=== PATIENT | male | born 1970 | race African-American/Black ===

== ENCOUNTER 2017-09-23 00:25 | Inpatient (IN) | payer MEDICARE, MEDICAID ==
[2017-09-23 01:08] LABS: ABS Basophils 0.1 10^3/ul (0-0.2); ABS Eosinophils 0.2 10^3/ul (0-0.6); ABS Lymphocytes 1.3 10^3/ul (1.0-4.8); ABS Monocytes 0.8 10^3/ul (0-0.8); ABS Neutrophils 5.8 10^3/ul (1.5-7.7); ABS Nucleated RBC 0 10^3/ul; Eosinophil % 2.4 % (0-6); Hematocrit 42 % (42-52); Hemoglobin 14.1 g/dl (14.0-18.0); Lymphocyte % 15.6 % (25-47); Mean Corpuscular HGB Conc 34 g/dl (31-36); Mean Corpuscular Hemoglobin 33 pg (27-31); Mean Corpuscular Volume 98 fL (80-94); Mean Platelet Volume 9 um3 (7.4-10.4); Nucleated Red Blood Cells % 0; Platelet Count 178 10^3/ul (150-450); Red Blood Count 4.23 10^6/ul (4.0-5.4); Red Cell Distribution Width 14 % (10.5-15); White Blood Count 8.1 10^3/ul (3.5-10.8)
[2017-09-23 01:16] LABS: INR 0.97 (0.77-1.02)
[2017-09-23 01:26] LABS: EGFR Non-African American 5.6 (>60)
[2017-09-23] MEDS ORDERED: Morphine INJ* 4 MG/ML 1 ML CARPUJECT IV ONE (03:34)
[2017-09-23] MEDS ORDERED: Ondansetron INJ* 2 MG/ML VIAL IV ONE (03:35)
--- NOTE | 2017-09-23 04:06 | ED ---
Cielo Pleitez Jason, scribed for Andrea Ghotra MD on 09/23/17 at 0047 . HPI Chest Pain - HPI Summary HPI Summary: This patient is a 47 year old M BIBA to [facility] accompanied by female with a chief complaint of chest pain since 2329. The patient states at 1736 last night he began experiencing mid sternal Chest pain while feeling hot and lightheaded for 30 minutes. The condition spontaneously resolved, and at 2330 last night he awoke due to similar mid sternal chest pain. The patient was was administered aspirin by EMS [facility]. The patient rates the pain 0/10 in severity. Symptoms aggravated by nothing. Symptoms alleviated by aspirin. Patient denies SOB, and chest pain. - History of Current Complaint Chief Complaint: EDChestPainROMI Time Seen by Provider: 09/23/17 00:33 Hx Obtained From: Patient Onset/Duration: Started Hours Ago - since 2329, Resolved Time of Onset: 23:30 Timing: Constant Pain Intensity: 0 Pain Scale Used: 0-10 Numeric Chest Pain Location: Mid Sternal Aggravating Factor(s): Nothing Alleviating Factor(s): OTC Meds - aspirin Associated Signs and Symptoms: Positive: Chest Pain, Lightheadedness, Other: - Feeling hot - Allergy/Home Medications Allergies/Adverse Reactions: Allergies Allergy/AdvReac Type Severity Reaction Status Date / Time NSAIDS (Non-Steroidal Allergy Intermediate d/t renal Verified 09/23/17 01:08 Anti-Inflamma impairment Penicillins Allergy Mild GI Upset Verified 09/23/17 01:08 Home Medications: Home Medications Calcitriol 0.5 mcg PO DAILY 09/23/17 [History Confirmed 09/23/17] Ferric Citrate TAB(NF) 210 mg PO TID 09/23/17 [History Confirmed 09/23/17] Labetalol HCl 300 mg PO BID 09/23/17 [History Confirmed 09/23/17] Sevelamer TAB* [Renvela TAB*] 2,400 mg PO TID 09/23/17 [History Confirmed ] Vitamin E Mixed [E400 Mixed] 800 unit PO DAILY 09/23/17 [History Confirmed 09/23] levOCARNitine [Carnitor] 330 mg PO TID 09/23/17 [History Confirmed 09/23/17] PMH/Surg Hx/FS Hx/Imm Hx Previously Healthy: No Endocrine/Hematology History: Reports: Hx Anemia - ??? Denies: Hx Anticoagulant Therapy, Hx Diabetes, Hx Thyroid Disease, Other Endocrine/Hematological Disorders Cardiovascular History: Reports: Hx Angina, Hx Hypercholesterolemia, Hx Hypertension - ON MEDS 160/90 11/11, Hx Syncope - 01/2012 Denies: Hx Pacemaker/ICD, Other Cardiovascular Problems/Disorders Respiratory History: Denies: Hx Asthma, Hx Chronic Obstructive Pulmonary Disease (COPD), Other Respiratory Problems/Disorders GI History: Reports: Hx Irritable Bowel - CONSTIPATION- TAKING FIBER PILLS, Other GI Disorders - Constipation History: Reports: Hx Chronic Renal Failure, Hx Dialysis, Hx Renal Disease - dialysis 3 times a week, Other Problems/Disorders - ESRD Musculoskeletal History: Reports: Hx Arthritis - RIGHT ANKLE, Hx Back Problems, Other Musculoskeletal History Sensory History: Reports: Hx Contacts or Glasses - GLASSES, Hx Eye Injury, Hx Vision Problem, Other Sensory Impairments - S/P Artificial Eye D/T Injury Denies: Hx Hearing Aid Opthamlomology History: Reports: Hx Contacts or Glasses - GLASSES, Hx Eye Injury , Hx Vision Problem, Other Sensory Impairments - S/P Artificial Eye D/T Injury Neurological History: Reports: Hx Headaches - D/T elevated BP Denies: Hx Dementia, Hx Seizures, Other Neuro Impairments/Disorders Psychiatric History: Reports: Hx Anxiety - PRN MEDICATION Denies: Hx Substance Abuse, Other Psychiatric Issues/Disorders - Surgical History Surgery Procedure, Year, and Place: L Eye removal D/T Injury . [place] [facility] [place]OD[place] CATH INSERTION 2012 [facility] [place]. Hx Anesthesia Reactions: No - Immunization History Date of Tetanus Vaccine: UNK Date of Influenza Vaccine: None this season Infectious Disease History: No Infectious Disease History: Denies: Hx Hepatitis, Hx Human Immunodeficiency Virus (HIV), Traveled Outside the [place] in Last 30 Days - Family History Known Family History: Positive: Hypertension Negative: Blood Disorder - Social History Alcohol Use: None Substance Use Type: Reports: Marijuana Substance Use Comment - Amount & Last Used: EVERY DAY Hx Tobacco Use: Yes Smoking Status (MU): Former Smoker Type: Cigarettes Amount Used/How Often: 1 PPD Length of Time of Smoking/Using Tobacco: 32 Have You Smoked in the Last Year: No Review of Systems Positive: Other - "feeling hot" Positive: Chest Pain - midsternal Positive: Shortness Of Breath Neurological: Other - lightheaded All Other Systems Reviewed And Are Negative: Yes Physical Exam - Summary Physical Exam Summary: VITAL SIGNS: Reviewed. GENERAL: ~Patient is a well-developed and nourished male who is lying comfortable in the stretcher. Patient is not in any acute respiratory distress. HEAD AND FACE: No signs of trauma. No ecchymosis, hematomas or skull depressions. No sinus tenderness. EYES: PERRLA, EOMI x 2, No injected conjunctiva, no nystagmus. EARS: Hearing grossly intact. Ear canals and tympanic membranes are within normal limits. MOUTH: Oropharynx within normal limits. NECK: Supple, trachea is midline, no adenopathy, no JVD, no carotid bruit, no c- spine tenderness, neck with full ROM. CHEST: Symmetric, no tenderness at palpation LUNGS: Clear to auscultation bilaterally. No wheezing or crackles. CVS: Regular rate and rhythm, S1 and S2 present, no murmurs or gallops appreciated. ABDOMEN: Soft, non-tender. No signs of distention. No rebound no guarding, and no masses palpated. Bowel sounds are normal. EXTREMITIES: FROM in all major joints, no edema, no cyanosis or clubbing. AV fistula over the left forearm with weak thrill. NEURO: Alert and oriented x 3. No acute neurological deficits. Speech is normal and follows commands. SKIN: Dry and warm Triage Information Reviewed: Yes Vital Signs On Initial Exam: Initial Vitals Temp Pulse Resp BP Pulse Ox 98.5 F 86 17 118/54 94 09/23/17 00:30 09/23/17 00:30 09/23/17 00:30 09/23/17 00:30 09/23/17 00:30 Vital Signs Reviewed: Yes Diagnostics - Vital Signs Vital Signs Temp Pulse Resp BP Pulse Ox 09/23/17 00:30 98.5 F 86 17 118/54 94 - Laboratory Lab Results: Lab Results 09/23/17 09/23/17 09/23/17 Range/Units 00:50 00:50 00:50 WBC 8.1 (3.5-10.8) 10^3/ul RBC 4.23 (4.0-5.4) 10^6/ul Hgb 14.1 (14.0-18.0) g/dl Hct 42 (42-52) % MCV 98 H (80-94) fL MCH 33 H (27-31) pg MCHC 34 (31-36) g/dl RDW 14 (10.5-15) % Plt Count 178 (150-450) 10^3/ul MPV 9 (7.4-10.4) um3 Neut % (Auto) 71.0 (38-83) % Lymph % (Auto) 15.6 L (25-47) % [place] % (Auto) 10.3 H (1-9) % Eos % (Auto) 2.4 (0-6) % Baso % (Auto) 0.7 (0-2) % Absolute Neuts (auto) 5.8 (1.5-7.7) 10^3/ul Absolute Lymphs (auto) 1.3 (1.0-4.8) 10^3/ul Absolute Monos (auto) 0.8 (0-0.8) 10^3/ul Absolute Eos (auto) 0.2 (0-0.6) 10^3/ul Absolute Basos (auto) 0.1 (0-0.2) 10^3/ul Absolute Nucleated RBC 0 10^3/ul Nucleated RBC % 0 INR (Anticoag Therapy) 0.97 (0.77-1.02) APTT 32.5 (26.0-36.3) seconds Sodium 135 (133-145) mmol/L Potassium 3.8 (3.5-5.0) mmol/L Chloride 93 L (101-111) mmol/L Carbon Dioxide 30 (22-32) mmol/L Anion Gap 12 H (2-11) mmol/L BUN 37 H (6-24) mg/dL Creatinine 10.18 H (0.67-1.17) mg/dL Est GFR ( Amer) 7.1 (>60) Est GFR (Non-Af Amer) 5.6 (>60) BUN/Creatinine Ratio 3.6 L (8-20) Glucose 108 H (70-100) mg/dL Lactic Acid (0.5-2.0) mmol/L Calcium 8.6 (8.6-10.3) mg/dL Magnesium 2.2 (1.9-2.7) mg/dL Total Bilirubin 0.50 (0.2-1.0) mg/dL AST 22 (13-39) U/L ALT 32 (7-52) U/L Alkaline Phosphatase 87 (34-104) U/L POC Venous Troponin I (0.00-0.08) ng/mL Troponin I Cancelled Total Protein 7.8 (6.4-8.9) g/dL Albumin 4.1 (3.2-5.2) g/dL Globulin 3.7 (2-4) g/dL Albumin/Globulin Ratio 1.1 (1-3) 09/23/17 09/23/17 Range/Units 00:50 00:50 WBC (3.5-10.8) 10^3/ul RBC (4.0-5.4) 10^6/ul Hgb (14.0-18.0) g/dl Hct (42-52) % MCV (80-94) fL MCH (27-31) pg MCHC (31-36) g/dl RDW (10.5-15) % Plt Count (150-450) 10^3/ul MPV (7.4-10.4) um3 Neut % (Auto) (38-83) % Lymph % (Auto) (25-47) % [place] % (Auto) (1-9) % Eos % (Auto) (0-6) % Baso % (Auto) (0-2) % Absolute Neuts (auto) (1.5-7.7) 10^3/ul Absolute Lymphs (auto) (1.0-4.8) 10^3/ul Absolute Monos (auto) (0-0.8) 10^3/ul Absolute Eos (auto) (0-0.6) 10^3/ul Absolute Basos (auto) (0-0.2) 10^3/ul Absolute Nucleated RBC 10^3/ul Nucleated RBC % INR (Anticoag Therapy) (0.77-1.02) APTT (26.0-36.3) seconds Sodium (133-145) mmol/L Potassium (3.5-5.0) mmol/L Chloride (101-111) mmol/L Carbon Dioxide (22-32) mmol/L Anion Gap (2-11) mmol/L BUN (6-24) mg/dL Creatinine (0.67-1.17) mg/dL Est GFR ( Amer) (>60) Est GFR (Non-Af Amer) (>60) BUN/Creatinine Ratio (8-20) Glucose (70-100) mg/dL Lactic Acid 2.0 (0.5-2.0) mmol/L Calcium (8.6-10.3) mg/dL Magnesium (1.9-2.7) mg/dL Total Bilirubin (0.2-1.0) mg/dL AST (13-39) U/L ALT (7-52) U/L Alkaline Phosphatase (34-104) U/L POC Venous Troponin I 0.05 (0.00-0.08) ng/mL Troponin I Total Protein (6.4-8.9) g/dL Albumin (3.2-5.2) g/dL Globulin (2-4) g/dL Albumin/Globulin Ratio (1-3) Result Diagrams: 09/23/17 00:50 09/23/17 00:50 Lab Statement: Any lab studies that have been ordered have been reviewed, and results considered in the medical decision making process. - Radiology CXR Xray Interpretation: No Acute Changes Radiology Interpretation Completed By: ED Physician - EKG 0029 Cardiac Rate: NL EKG Rhythm: Sinus Rhythm - 84 EKG Interpretation: Normal axis, Normal interal, and Q waves with septal leads 0152 Cardiac Rate: NL EKG Rhythm: Sinus Rhythm - 91 BPM EKG Interpretation: Normal axis, Normal interal, and Q waves with septal leads Chest Pain Course/Dx - Course Course Of Treatment: This patient is a 47 year old M BIBA to [facility] accompanied by female with a chief complaint of chest pain since 2329. The patient states at 1736 last night he began experiencing mid sternal Chest pain while feeling hot and lightheaded for 30 minutes. The condition spontaneously resolved, and at 2330 last night he awoke due to similar mid sternal chest pain. The patient was was administered aspirin by EMS [facility]. In the ED course the patient was given. An EKG reveals An EKG reveals normal sinus rhythm at 84 bpm with Normal axis, Normal interval, and Q waves with septal leads. A Second EKG revealed normal sinus rhythm at 91 bpm with normal axis, normal interval, and Q waves with septal leads. CXR reveals no acute process. Troponin result is normal. Assessment/Plan: We discussed patient care with Dr. Peacock (hospitalist) and they recommended admission. The patient is agreeable with this plan. - Diagnoses Provider Diagnoses: ESRD on peritoneal dialysis Discharge - Discharge Plan Condition: Fair Disposition: ADMITTED TO [facility] Referrals: Tejas Lehman MD [Primary Care Provider] - The documentation as recorded by the Cielo payton Jason accurately reflects the service I personally performed and the decisions made by me, Andrea Ghotra MD.
[2017-09-23] MEDS ORDERED: Acetaminophen TAB* 325 MG PO PRN (05:09)
[2017-09-23] MEDS ORDERED: Ondansetron INJ* 2 MG/ML VIAL IV PRN (05:09)
[2017-09-23] MEDS: MinoXIDil TAB* 10 MG TAB PO SCH ×3 (08:02→22:14)
[2017-09-23] MEDS: Calcitriol CAP* 0.25 MCG PO SCH (08:02)
[2017-09-23] MEDS: Heparin VIAL(*) 5000 UNITS/ML VIAL (FIVE THOUSAND) SUBCUT SCH ×2 (08:02→22:04)
[2017-09-23] MEDS: Sevelamer TAB* 800 MG PO SCH ×3 (08:02→17:35)
--- NOTE | 2017-09-23 08:24 | RAD ---
Indication: Episode of midsternal chest pain. Comparison: March 18, 2014 Technique: Upright AP 0120 hours Report: Clear lungs and pleural spaces. Negative for pneumothorax. The heart, pulmonary vasculature, and mediastinal contours are unremarkable. Unremarkable osseous structures and soft tissue contours. IMPRESSION: No evidence for acute intrathoracic disease.
[2017-09-23] MEDS ORDERED: Labetalol TAB* 300 MG PO SCH ×3 (09:00→21:00)
--- NOTE | 2017-09-23 13:09 | PN ---
Subjective Date of Service: 09/23/17 Interval History: Patient seen and examined. Repeatedly hypotensive and dropped to 76/32 after BP med this morning. Clover dizzy, sweaty, weak with chest heaviness during that time. Chest heaviness resolved after pressure came back up to 96 systolic. Lengthy discussion with patient regarding BP meds, patient has longstanding history of HTN but was off meds for some time. Was just placed back on labetelol recently and pressures have been low at home since. Patient also states he was prescribed 300mg BID but was breaking pills in half and BP at home was still <100 systolic. Currently feeling better now that BP is improving. Objective Active Medications: Acetaminophen (Tylenol Tab*) 650 mg PO Q4H PRN PRN Reason: PAIN Calcitriol (Rocaltrol Cap*) 0.5 mcg PO DAILY [facility] Last Admin: 09/23/17 08:02 Dose: 0.5 mcg Heparin Sodium (Porcine) (Heparin Vial(*)) 5,000 units SUBCUT Q12HR [facility] Last Admin: 09/23/17 08:02 Dose: 5,000 units Minoxidil (Loniten Tab*) 10 mg PO TID [facility] Last Admin: 09/23/17 08:02 Dose: 10 mg Morphine Sulfate (Morphine Inj (Syringe)*) 2 mg IV Q4H PRN PRN Reason: PAIN - MILD Ondansetron HCl (Zofran Inj*) 4 mg IV Q6H PRN PRN Reason: NAUSEA Sevelamer Carbonate (Renvela Tab*) 2,400 mg PO TID [facility] Last Admin: 09/23/17 12:50 Dose: 2,400 mg Vital Signs - 8 hr 09/23/17 09/23/17 09/23/17 05:33 06:00 06:02 Temperature Pulse Rate 97 99 98 Respiratory 21 20 19 Rate Blood Pressure 98/54 (mmHg) O2 Sat by Pulse 97 94 95 Oximetry 09/23/17 09/23/17 09/23/17 06:13 07:13 11:17 Temperature 98.4 F 97.7 F 98.3 F Pulse Rate 100 96 88 Respiratory 19 18 20 Rate Blood Pressure 98/54 107/57 76/42 (mmHg) O2 Sat by Pulse 100 97 99 Oximetry 09/23/17 09/23/17 11:20 12:55 Temperature Pulse Rate Respiratory Rate Blood Pressure 72/38 96/62 (mmHg) O2 Sat by Pulse Oximetry Oxygen Devices in Use Now: None Appearance: [place], well appearing, NAD Eyes: No Scleral Icterus, PERRLA Ears/Nose/Mouth/Throat: Clear Oropharnyx, Mucous Membranes Moist Neck: Trachea Midline Respiratory: Symmetrical Chest Expansion and Respiratory Effort, Clear to Auscultation Cardiovascular: NL Sounds; No Murmurs; No JVD Abdominal: NL Sounds; No Tenderness; No Distention Neurological: Alert and Oriented x 3, NL Muscle Strength and Tone Nutrition: Taking PO's Result Diagrams: 09/23/17 00:50 09/23/17 00:50 Additional Lab and Data: Diagnostic Imaging: Patient Name: ATA BEAULIEU Medical Record#: [id number] Ordering Physician: Andrea Ghotra MD Acct.#: [id number] : 1970 Age: 47 Sex: M Location: [address] [place] [address] - MEDICAL/TELEMETRY Exam Date: 09/23/1743 ADM Status: ADM Jacob Order Information: CHEST AP PORTABLE Accession Number: [id number] CPT: 88424 Indication: Episode of midsternal chest pain. Comparison: March 18, 2014 Technique: Upright AP 0120 hours Report: Clear lungs and pleural spaces. Negative for pneumothorax. The heart, pulmonary vasculature, and mediastinal contours are unremarkable. Unremarkable osseous structures and soft tissue contours. IMPRESSION: No evidence for acute intrathoracic disease. <Electronically signed by Jeyson Alvarez MD in OV> 09/23/17820 Dictated By: Jeyson Alvarez MD Dictated Date/Time: 09/23/17820 Transcribed Date/Time: 09/23/17818 Copy to: Assess/Plan/Problems-Billing Assessment: This is a pleasant 47 year old male patient with ESRD on HD MWF that presented to ER with c/o chest pressure and heaviness. - Patient Problems (1) Chest pressure Code(s): R07.89 - OTHER CHEST PAIN SNOMED Code(s): 108436963 Comment: - Cycle trops, 0.15/0.15, third pending - Nuclear stress monday - Appears this may be related to episodes of hypotension, will DC labeltolol and monitor BP while inpatient (2) ESRD on hemodialysis Code(s): N18.6 - END STAGE RENAL DISEASE; Z99.2 - DEPENDENCE ON RENAL DIALYSIS SNOMED Code(s): 761090586 Comment: - MWF schedule - Continue sevelemer (3) Hypotension Comment: - DC labetolol - Continue monoxidil for now and monitor BP and s/s chest pressure (4) Hyperlipidemia Code(s): E78.5 - HYPERLIPIDEMIA, UNSPECIFIED SNOMED Code(s): 94139784 Comment: - QZB=[id number], should be optimized with statin, will eval after stress test Status and Disposition: Remain inpatient for symptomatic hypotension and chest pressure. Stress test Monday.
[2017-09-23] MEDS: Morphine INJ* 2 MG/ML 1 ML CARPUJECT IV PRN (14:29)
--- NOTE | 2017-09-23 17:17 | HP ---
CC: Dr. Lehman * HISTORY AND PHYSICAL: DATE OF ADMISSION: 09/23/17 PRIMARY CARE PROVIDER: None. RESIDENTIAL MANAGER: Dr. Lehman. CHIEF COMPLAINT: Chest pain. HISTORY OF PRESENT ILLNESS: Mr. Dodson is a 47-year-old male with a history of end-stage renal disease, on hemodialysis Monday, Monday, Monday and hypertension, who presents to the emergency room with complaints of chest pain. The patient states that yesterday afternoon around 4:30 p.m., he began to have severe chest discomfort. He describes the pain as if he ran too much and his chest hurts following that. He does not describe it as a heaviness. He describes the pain is being across the center of his chest. He had associated diaphoresis and nausea, but states that he frequently feels nauseous. He denies any associated shortness of breath. The patient states the pain went away on its own after approximately 30 to 45 minutes. The patient states that he got ready and went to bed around 8 o'clock. He was awakened from sleep at approximately 11:30 p.m. with the same discomfort, though was much more intense. Again, the pain dissipated after approximately 30 to 45 minutes. He has been chest pain free in the emergency room. He was beginning to get some chest discomfort and was given a dose of morphine and this abated the discomfort while here. Of note, the patient was recently started on minoxidil and labetalol. He has noted that his blood pressure is much lower than it has been previously. PAST MEDICAL HISTORY: 1. End-stage renal disease, on hemodialysis Monday, Monday, and Monday. 2. Hypertension. PAST SURGICAL HISTORY: 1. Left upper extremity fistula creation. 2. Kidney biopsy. 3. Left eye enucleation. 4. Peritoneal dialysis catheter and insertion. MEDICATIONS: 1. Vitamin E 800 units p.o. daily. 2. Sevelamer 2400 mg p.o. t.i.d. a.c. 3. Minoxidil 10 mg p.o. t.i.d. 4. Labetalol 300 mg p.o. b.i.d. 5. Carnitor 330 mg p.o. t.i.d. 6. Calcitriol 0.5 mcg p.o. daily. 7. Ferric citrate 210 mg p.o. t.i.d. ALLERGIES: NSAIDS and PENICILLINS. FAMILY HISTORY: Mom is living, she has a history of hypertension, diabetes, and osteoarthritis. Dad is at the age of 60, he had cutaneous T-cell lymphoma. SOCIAL HISTORY: The patient is currently a nonsmoker, quitting approximately in 2011. He does have a 20-pack year history of smoking. He does not drink alcohol. He uses marijuana on occasion. He is not working. He does have a significant other whom he states he plans on marrying some time in the future. He has 4 children. He indicates that his mom would be his surrogate decision maker. REVIEW OF SYSTEMS: The patient admitted to fevers, stating that he frequently will feel hot and sweaty. He has had no loss of appetite. He has chest pain as noted above. No edema. He admits to palpitations and notes that his heart rate has been getting up into the approximate 120s. He has had nausea as above. No abdominal pain. He does feel somewhat constipated. No hematochezia. No hematuria. No dysuria. No focal weakness or sensory loss. No sudden changes in vision. No dysphagia. He does complain of back pain and bilateral knee pain. No rashes. He does feel that he may have some anxiety. PHYSICAL EXAMINATION GENERAL: The patient is a well-developed middle-aged male, lying in the stretcher, in no acute distress. VITAL SIGNS: Blood pressure 121/56, pulse 91, respirations 20, temp 98.5, O2 sat 96% on room air. HEENT: Left eye is artificial. Right reveals round pupil that reacts to light. Extraocular muscles are intact. Oropharynx is clear. Oral mucosa is moist. NECK: There is no submandibular, cervical, or supraclavicular adenopathy. Thyroid is not enlarged. No thyroid nodules are noted. PULMONARY: Lungs are clear to auscultation bilaterally. The breath sounds are diminished in all lung james. CARDIAC: Normal S1, S2. Regular rate and rhythm. There is a holosystolic murmur heard best in the left mid axillary line. There is no lower extremity edema. ABDOMEN: Bowel sounds present. Abdomen is soft, nontender, and nondistended. MUSCULOSKELETAL: There is no cyanosis or clubbing of the digits. There is full active range of motion of all 4 extremities. SKIN: Warm and dry. There are no rashes. NEURO: Cranial nerves II through XII are grossly intact. Sensation is intact to light touch throughout. Strength is 5/5 and symmetric in both upper and lower extremities bilaterally. PSYCH: The patient is alert. He is oriented x3. Affect appears appropriate. DIAGNOSTIC STUDIES/LAB DATA: WBC 8.1, hemoglobin 14.1, hematocrit 42, platelets 178. INR 0.97. Sodium 135, potassium 3.8, chloride 93, CO2 30, BUN 37, creatinine 10.18, glucose 108, lactic acid 2.0, calcium 8.6, magnesium 2.2. Bilirubin 0.5, AST 22, ALT 30, alk phos 87. Troponin the i-STAT 0.05. Albumin 4.1. EKG reveals normal sinus rhythm without any acute ST-T wave abnormalities. ASSESSMENT AND PLAN: Mr. Dodson is a 47-year-old male with a history of end- stage renal disease and hypertension, who presents to the emergency room with complaints of chest pain. 1. Chest pain. The patient will be admitted and ruled out for an acute coronary syndrome. The second troponin has been sent down now. The patient's YOEL risk score is 1; however, if we consider the patient's past smoking history , we will go up to 2. He will be maintained on his usual blood pressure medications. A third troponin will be obtained at 0800. A lipid profile will be added to labs obtained in the emergency room. I will hold off on starting aspirin for now. 2. Systolic murmur. The patient did have an echocardiogram at Dr. Austin's office in 2014. At that time, he had nonsignificant valvular disease. The patient does have a significant murmur heard on exam today. We will obtain an echocardiogram on Monday if the patient remains hospitalized, awaiting stress test. 3. Hypertension. The patient's blood pressure is under excellent control on his usual doses of minoxidil and labetalol. The patient notes that he has had much lower blood pressure than prior on this regimen. 4. End-stage renal disease. The patient received dialysis yesterday, . He will continue with dialysis Monday, Monday, and Monday. We will continue him on his Renvela. 5. DVT prophylaxis. According to the Adult Thrombosis Prophylaxis Risk Factor Assessment Guide, the patient has a total risk factor score of 2, making him moderate risk. Heparin 5000 units subcutaneous q.12 hours will be utilized as DVT prophylaxis. 6. Code status is full and again the patient indicates that his mom is his healthcare proxy. TIME SPENT: Sixty-five minutes was spent admitting this patient. [id number]/CPS #: [id number] GRUPO
[2017-09-23] MEDS ORDERED: Calcium Carbonate CHEW TAB* 500 MG (TUMS) PO PRN (17:34)
--- NOTE | 2017-09-23 22:11 | PN ---
Progress Note - Progress Note Date of Service: 09/23/17 Note: Patient has been persistently hypotensive, will d/c his minoxidil in addition the his labetolol that was discontinued as well.
[2017-09-24] MEDS: Calcitriol CAP* 0.25 MCG PO SCH (08:38)
[2017-09-24] MEDS: Heparin VIAL(*) 5000 UNITS/ML VIAL (FIVE THOUSAND) SUBCUT SCH ×2 (08:39→22:06)
[2017-09-24] MEDS: Sevelamer TAB* 800 MG PO SCH ×3 (08:39→17:20)
--- NOTE | 2017-09-24 11:47 | PN ---
Subjective Date of Service: 09/24/17 Interval History: Patient seen and examined. BP low again this am but asymptomatic. Requested manual reading which is 96 systolic. Patient is ambulatory with no complaint of chest pain or SOB, no dizziness and no further complaints. Wants to go home, discussed importance of the stress test given his renal issues, patient agreeable. Objective Active Medications: Acetaminophen (Tylenol Tab*) 650 mg PO Q4H PRN PRN Reason: PAIN Last Admin: 09/23/17 17:40 Dose: 650 mg Calcitriol (Rocaltrol Cap*) 0.5 mcg PO DAILY [facility] Last Admin: 09/24/17 08:38 Dose: 0.5 mcg Calcium Carbonate (Tums*) 1,000 mg PO BID PRN PRN Reason: HEARTBURN/INDIGESTION Last Admin: 09/23/17 17:40 Dose: 1,000 mg Heparin Sodium (Porcine) (Heparin Vial(*)) 5,000 units SUBCUT Q12HR [facility] Last Admin: 09/24/17 08:39 Dose: 5,000 units Morphine Sulfate (Morphine Inj (Syringe)*) 2 mg IV Q4H PRN PRN Reason: PAIN - MILD Last Admin: 09/23/17 14:29 Dose: 2 mg Ondansetron HCl (Zofran Inj*) 4 mg IV Q6H PRN PRN Reason: NAUSEA Sevelamer Carbonate (Renvela Tab*) 2,400 mg PO TID [facility] Last Admin: 09/24/17 08:39 Dose: Not Given Vital Signs - 8 hr 09/24/17 09/24/17 09/24/17 03:48 07:19 09:45 Temperature 97.9 F 97.7 F Pulse Rate 109 90 Respiratory 16 16 Rate Blood Pressure 107/67 86/41 90/64 (mmHg) O2 Sat by Pulse 97 98 Oximetry Oxygen Devices in Use Now: None Appearance: Alert, NAD Ears/Nose/Mouth/Throat: NL Teeth, Lips, Gums, Mucous Membranes Moist Neck: NL Appearance and Movements; NL JVP, Trachea Midline Respiratory: Symmetrical Chest Expansion and Respiratory Effort, Clear to Auscultation Cardiovascular: NL Sounds; No Murmurs; No JVD, RRR Abdominal: NL Sounds; No Tenderness; No Distention Extremities: No Edema Neurological: Alert and Oriented x 3, NL Gait, NL Muscle Strength and Tone Nutrition: Taking PO's Result Diagrams: 09/23/17 00:50 09/23/17 00:50 Additional Lab and Data: Diagnostic Imaging: Patient Name: ATA BEAULIEU Medical Record#: [id number] Ordering Physician: Andrea Ghotra MD Acct.#: [id number] : 1970 Age: 47 Sex: M Location: [address] [place] [address] - MEDICAL/TELEMETRY Exam Date: 09/23/1743 ADM Status: ADM Jacob Order Information: CHEST AP PORTABLE Accession Number: [id number] CPT: 81106 Indication: Episode of midsternal chest pain. Comparison: March 18, 2014 Technique: Upright AP 0120 hours Report: Clear lungs and pleural spaces. Negative for pneumothorax. The heart, pulmonary vasculature, and mediastinal contours are unremarkable. Unremarkable osseous structures and soft tissue contours. IMPRESSION: No evidence for acute intrathoracic disease. <Electronically signed by Jeyson Alvarez MD in OV> 09/23/17820 Dictated By: Jeyson Alvarez MD Dictated Date/Time: 09/23/17820 Transcribed Date/Time: 09/23/17818 Copy to: Assess/Plan/Problems-Billing Assessment: This is a pleasant 47 year old male patient with ESRD on HD MWF that presented to ER with c/o chest pressure and heaviness and persistent hypotension. - Patient Problems (1) Chest pressure Code(s): R07.89 - OTHER CHEST PAIN SNOMED Code(s): 486291826 Comment: - Cycle trops, 0.15/0.15/0.14 - Nuclear stress monday, pending ECHO read today - Continue to hold BP meds, as last episode of chest pressure coincided with hypotensive episode, had morphine with relief (2) ESRD on hemodialysis Code(s): N18.6 - END STAGE RENAL DISEASE; Z99.2 - DEPENDENCE ON RENAL DIALYSIS SNOMED Code(s): 744961462 Comment: - MWF schedule - Continue sevelemer (3) Hypotension Comment: - BP meds DC'd - Patient asymptomatic with SBP 95 or higher - Eval ECHO and wait for stress, per patient and mother, he has had hypotension for some time, may be dialysis-related (4) Hyperlipidemia Code(s): E78.5 - HYPERLIPIDEMIA, UNSPECIFIED SNOMED Code(s): 88661089 Comment: - HCL=440, should be optimized with statin, will eval after stress test Status and Disposition: Remain inpatient for symptomatic hypotension and chest pressure. Stress test Monday. Counseling and/or Coordination of Care Minutes: coordinated with patient and his mother/healthcare proxy
--- NOTE | 2017-09-24 12:38 | ECHO ---
Patient: ATA BEAULIEU [facility] Rec#: [id number] : 1970 Date: 09/24/2017 Age: 47y Height: 188 cm / 74.0 in Weight: 111 kg / 244.6 lbs Sex: M BSA: 2.4 Room#: 432 Admit Date#: 09/23/2017 Type: Inpatient Referring: Bhargavi Peacock DO Reading: Santosh Fontenot MD Composition Weatherboard Installer: Awilda Larose RN RDCS CC: Tejas Lehman MD Transthoracic Echocardiogram Indication: Chest pain, cardiac murmur BP: 107/67 HR: 85 Rhythm: NSR Findings History: HTN, ESRD Technical Comments: The study quality is fair. The study is technically limited due to patient body habitus. Completed at 0850. Left Ventricle: The left ventricular chamber size is normal. Severe concentric left ventricular hypertrophy is observed. Basal septal hypertrophy and systolic anterior motion of the mitral valve are observed creating an outflow tract gradient. LVOT velocity 4.3 m/sec (max PG 73mmHg, mean PG 39mmHg) with increase to 4.8 m/sec with Valsalva (max PG 92mmHg and mean PG 46mmHg). Global left ventricular wall motion and contractility are within normal limits. The left ventricle appears hyperdynamic. The estimated ejection fraction is greater than 65%. Abnormal left ventricular diastolic function is observed. Abnormal left ventricular diastolic filling is observed, consistent with impaired relaxation. Left Atrium: The left atrium is mildly dilated. Right Ventricle: The right ventricle wall thickness is mildly increased. The right ventricular cavity size is normal. The right ventricular global systolic function is normal. Right Atrium: The right atrial cavity size is normal. Aortic Valve: The aortic valve leaflets are mildly thickened. There is no evidence of aortic regurgitation. There is no evidence of aortic stenosis. Mitral Valve: The mitral valve leaflets are mildly thickened. There is mild to moderate mitral regurgitation. There is no evidence of mitral stenosis. Chordal systolic anterior motion is visualized. Tricuspid Valve: The tricuspid valve leaflets are normal. There is trace to mild tricuspid regurgitation. No pulmonary hypertension is noted. There is no tricuspid stenosis. Pulmonic Valve: The pulmonic valve appears normal. There is a trace pulmonic regurgitation. There is no pulmonic stenosis. Pericardium: There is no significant pericardial effusion. A pericardial fat pad is visualized. Aorta: There is no dilatation of the ascending aorta. There is no dilatation of the aortic arch. There is no dilation of the aortic root. Pulmonary Artery: The main pulmonary artery appears normal. Venous: The venous system is not well visualized. The inferior vena cava appears normal in size. There is an approximate 50% respiratory change in the inferior vena cava dimension. Conclusions The study is technically limited due to patient body habitus. Severe concentric left ventricular hypertrophy is observed. Basal septal hypertrophy and systolic anterior motion of the mitral valve are observed creating an outflow tract gradient. The left ventricle appears hyperdynamic. The estimated ejection fraction is greater than 65%. The left atrium is mildly dilated. The right ventricle wall thickness is mildly increased. There is mild to moderate mitral regurgitation. Chordal systolic anterior motion is visualized. There is trace to mild tricuspid regurgitation. Marked LVH and dynamic LVOT obstruction: differential includes hypertrophic cardioyopathy, infiltactive cardiomyopathy, amyloidosis, and hypertensive cardiomyopathy. Similar to 2014 except that the degree of LVOT obstruction and the MR have increased. Measurements Name Value Normal Range RVDdMajor (2D) 4.2 cm (2.2 - 4.4) RVAW (2D) 0.8 cm (0.2 - 0.5) RAd ISD 4CH 4.8 cm (3.4 - 4.9) RA (A4C)W 3.9 cm (2.9 - 4.6) IVSd (2D) 1.9 cm (0.6 - 1) LVPWd (2D) 1.9 cm (0.6 - 1) LVIDd (2D) 3.7 cm (3.6 - 5.4) LVIDs (2D) 2.1 cm - LV FS (2D) 43 % (25 - 45) Aortic Annulus 2.6 cm (1.4 - 2.6) Ao root diameter (2D) 3.4 cm (2.1 - 3.5) Ascending Ao 3.3 cm (2.1 - 3.4) Aortic arch 2.7 cm (1.8 - 3.4) LA dimension (AP) 2D 3.6 cm (2.3 - 3.8) LAd ISD 4CH 5.1 cm (2.9 - 5.3) LA ISD 4CH W 4.8 cm (2.5 - 4.5) Name Value Normal Range LA ESV SP 4CH (A/L) 65 ml - LA ESV SP 2CH (A/L) 67 ml - LA ESV BP (A/L) 68 ml - LA ESV BP (A/L) index 29 ml/m2 - LA ESV SP 4CH (MOD) 62 ml - LA ESV SP 2CH (MOD) 63 ml - Name Value Normal Range MV E-wave Vmax 0.94 m/sec - MV deceleration time 157 msec - MV A-wave Vmax 1.3 m/sec - MV E:A ratio 0.7 ratio - LV septal e' Vmax 0.04 m/sec - LV lateral e' Vmax 0.06 m/sec - LV E:e' septal ratio 23.5 ratio - LV E:e' lateral ratio 15.7 ratio - Name Value Normal Range AV Vmax 4.3 m/sec - AV VTI 83.5 cm - AV peak gradient 73 mmHg - AV mean gradient 38 mmHg - LVOT Vmax 4.3 m/sec - LVOT VTI 82.8 cm - LVOT peak gradient 73 mmHg - LVOT mean gradient 39 mmHg - JAMES Vmax 0.8 m/sec - Name Value Normal Range TR Vmax 2.6 m/sec - TR peak gradient 27 mmHg - RAP 8 mmHg - RVSP 35 mmHg - IVC diameter 2 cm - Name Value Normal Range PV Vmax 0.88 m/sec -
[2017-09-24] MEDS: Morphine INJ* 2 MG/ML 1 ML CARPUJECT IV PRN (23:19)
[2017-09-25] MEDS: Sevelamer TAB* 800 MG PO SCH ×3 (06:30→19:32)
[2017-09-25] MEDS: Heparin VIAL(*) 5000 UNITS/ML VIAL (FIVE THOUSAND) SUBCUT SCH ×2 (09:35→21:28)
[2017-09-25] MEDS ORDERED: Regadenoson* 0.4 MG/5 ML SYRINGE ONE (10:47)
--- NOTE | 2017-09-25 13:42 | RAD ---
Edited for charges. INDICATION: Chest pain COMPARISON: Similar examination March 20, 2014 as well as chest x-ray dated September 23, 2017 TECHNIQUE: SPECT imaging was performed. Rest images were acquired following the intravenous injection of 10.4 millicuries of technetium 99m tetrofosmin at 0951 hours. At 1140 hours stress images were acquired following the intravenous administration of 25.7 millicuries of technetium 99m tetrofosmin. The patient received intravenous Lexiscan prior to the stress image acquisition. FINDINGS: There is mild relative decreased uptake at the inferior myocardium as apparent on the nonattenuation corrected images. This appearance is not seen on the attenuation correction images.. The cardiac chamber size is normal. There are no wall motion abnormalities. The ejection fraction is calculated at 47% during stress. IMPRESSION: Possible reversible ischemia involving the inferior myocardium with a low normal ejection fraction. ASSESSMENT: Intermediate risk Based on imaging criteria from ACC/AHA 2002 Guideline Update for the Management of Patients With Chronic Stable Angina Table 23. Noninvasive Risk Stratification. MTDD
[2017-09-25] MEDS: Calcitriol CAP* 0.25 MCG PO SCH (15:24)
[2017-09-25] MEDS ORDERED: Heparin DIALYSIS ONLY(*) 1,000 UNITS/ML VIAL DIALYSIS ONE (18:00)
[2017-09-25 19:36] LABS: Hematocrit 35 % (42-52); Hemoglobin 12.1 g/dl (14.0-18.0); Mean Corpuscular HGB Conc 35 g/dl (31-36); Mean Corpuscular Hemoglobin 34 pg (27-31); Mean Corpuscular Volume 97 fL (80-94); Mean Platelet Volume 9 um3 (7.4-10.4); Platelet Count 160 10^3/ul (150-450); Red Blood Count 3.59 10^6/ul (4.0-5.4); Red Cell Distribution Width 14 % (10.5-15); White Blood Count 6.3 10^3/ul (3.5-10.8)
[2017-09-25 20:02] LABS: EGFR Non-African American 2.8 (>60)
[2017-09-25] MEDS ORDERED: Metoprolol Succinate XL TAB* 100 MG PO SCH (21:00)
--- NOTE | 2017-09-26 07:34 | PN ---
Subjective Date of Service: 09/25/17 Interval History: Patient seen and examined after stress test and dialysis, case discussed at length with Dr. Lehman. Stress test is intermediate risk, patient will stay the night and be optimized on beta jan therapy for his extensive LVH and LVOT. Patient states understanding of plan, also discussed with his mother at bedside. He denies any chest pain, no further hypotension, no SOB, no n/v, fever fatigue or chills. Objective Active Medications: Acetaminophen (Tylenol Tab*) 650 mg PO Q4H PRN PRN Reason: PAIN Last Admin: 09/23/17 17:40 Dose: 650 mg Calcitriol (Rocaltrol Cap*) 0.5 mcg PO DAILY [facility] Last Admin: 09/25/17 15:24 Dose: 0.5 mcg Calcium Carbonate (Tums*) 1,000 mg PO BID PRN PRN Reason: HEARTBURN/INDIGESTION Last Admin: 09/23/17 17:40 Dose: 1,000 mg Heparin Sodium (Porcine) (Heparin Vial(*)) 5,000 units SUBCUT Q12HR [facility] Last Admin: 09/25/17 21:28 Dose: 5,000 units Metoprolol Succinate (Toprol Xl Tab*) 100 mg PO 2100 [facility] Last Admin: 09/25/17 21:28 Dose: 100 mg Morphine Sulfate (Morphine Inj (Syringe)*) 2 mg IV Q4H PRN PRN Reason: PAIN - MILD Last Admin: 09/24/17 23:19 Dose: 2 mg Ondansetron HCl (Zofran Inj*) 4 mg IV Q6H PRN PRN Reason: NAUSEA Sevelamer Carbonate (Renvela Tab*) 2,400 mg PO TID AC [facility] Last Admin: 09/25/17 19:32 Dose: 2,400 mg Vital Signs - 8 hr 09/25/17 09/26/17 23:45 04:06 Temperature 97.9 F 98.0 F Pulse Rate 92 70 Respiratory 16 16 Rate Blood Pressure 127/62 119/56 (mmHg) O2 Sat by Pulse 99 98 Oximetry Oxygen Devices in Use Now: None Appearance: Alert, NAD Ears/Nose/Mouth/Throat: NL Teeth, Lips, Gums, Mucous Membranes Moist Neck: Trachea Midline Respiratory: Symmetrical Chest Expansion and Respiratory Effort, Clear to Auscultation Cardiovascular: RRR, - - Murmur, regular rate and rhythm Abdominal: NL Sounds; No Tenderness; No Distention Extremities: No Edema Neurological: Alert and Oriented x 3, NL Gait Nutrition: Taking PO's Result Diagrams: 09/25/17 16:00 09/25/17 16:00 Additional Lab and Data: Diagnostic Imaging: Patient Name: ATA BEAULIEU Medical Record#: [id number] Ordering Physician: Bhargavi Peacock DO Acct.#: [id number] : 1970 Age: 47 Sex: M Location: [address] [place] [address]/TELEMETRY Exam Date: 09/25/17530 ADM Status: ADM Jacob Order Information: NUCLEAR CARDIAC STRESS TEST Accession Number: [id number] CPT: 60569 INDICATION: Chest pain COMPARISON: Similar examination March 20, 2014 as well as chest x-ray dated September 23, 2017 TECHNIQUE: SPECT imaging was performed. Rest images were acquired following the intravenous injection of 10.4 millicuries of technetium 99m tetrofosmin at 0951 hours. At 1140 hours stress images were acquired following the intravenous administration of 25.7 millicuries of technetium 99m tetrofosmin. The patient received intravenous Lexiscan prior to the stress image acquisition. FINDINGS: There is mild relative decreased uptake at the inferior myocardium as apparent on the nonattenuation corrected images. This appearance is not seen on the attenuation correction images.. The cardiac chamber size is normal. There are no wall motion abnormalities. The ejection fraction is calculated at 47% during stress. IMPRESSION: Possible reversible ischemia involving the inferior myocardium with a low normal ejection fraction. ASSESSMENT: Intermediate risk Based on imaging criteria from ACC/AHA 2002 Guideline Update for the Management of Patients With Chronic Stable Angina Table 23. Noninvasive Risk Stratification. <Electronically signed by Tristan Edge MD in OV> 09/25/17 1339 Dictated By: Tristan Edge MD Dictated Date/Time: 09/25/17 1339 Transcribed Date/Time: 09/25/17 1317 Copy to: Patient Name: ATA BEAULIEU Medical Record#: [id number] Ordering Physician: Andrea Ghotra MD Acct.#: [id number] : 1970 Age: 47 Sex: M Location: [address] [place] [address] - MEDICAL/TELEMETRY Exam Date: 09/23/1743 ADM Status: ADM Jacob Order Information: CHEST AP PORTABLE Accession Number: [id number] CPT: 01479 Indication: Episode of midsternal chest pain. Comparison: March 18, 2014 Technique: Upright AP 0120 hours Report: Clear lungs and pleural spaces. Negative for pneumothorax. The heart, pulmonary vasculature, and mediastinal contours are unremarkable. Unremarkable osseous structures and soft tissue contours. IMPRESSION: No evidence for acute intrathoracic disease. <Electronically signed by Jeyson Alvarez MD in OV> 09/23/17820 Dictated By: Jeyson Alvarez MD Dictated Date/Time: 09/23/17820 Transcribed Date/Time: 09/23/17818 Copy to: Assess/Plan/Problems-Billing Assessment: This is a pleasant 47 year old male patient with ESRD on HD MWF that presented to ER with c/o chest pressure and heaviness and persistent hypotension. - Patient Problems (1) Chest pressure Code(s): R07.89 - OTHER CHEST PAIN SNOMED Code(s): 794685499 Comment: - Stress as above - ECHO as above - Optimize on metoprolol starting tonight as per Dr. Gore and Dr. Lehman (2) ESRD on hemodialysis Code(s): N18.6 - END STAGE RENAL DISEASE; Z99.2 - DEPENDENCE ON RENAL DIALYSIS SNOMED Code(s): 129806402 Comment: - MWF schedule - Continue sevelemer (3) Hypotension Comment: - Resolving off labetolol and monoxidil - Monitor BP while initiating BB therapy (4) Hyperlipidemia Code(s): E78.5 - HYPERLIPIDEMIA, UNSPECIFIED SNOMED Code(s): 39787067 Comment: - ESB=304, should be optimized with statin, will eval after stress test Status and Disposition: Discharge in morning. Counseling and/or Coordination of Care Minutes: coordinated with patient and Dr. Lehman
[2017-09-26 07:37] VITALS: BP 124/60
[2017-09-26] MEDS: Sevelamer TAB* 800 MG PO SCH (08:53)
[2017-09-26] MEDS: Calcitriol CAP* 0.25 MCG PO SCH (08:53)
[2017-09-26] MEDS: Heparin VIAL(*) 5000 UNITS/ML VIAL (FIVE THOUSAND) SUBCUT SCH (08:54)
--- NOTE | 2017-09-26 23:57 | DS ---
CC: Dr. Lehman; Dr. Cerna * DISCHARGE SUMMARY: DATE OF ADMISSION: 09/25/17 DATE OF DISCHARGE: 09/26/17 PRIMARY CARE PHYSICIAN: Tejas Lehman MD ATTENDING DURING THIS ADMISSION: Marga Whitlock DO * (DICTATED BY JUAN RODRIGUEZ NP) HOSPITAL COURSE: This is a pleasant Afirican-Ira[place] 47-year-old male patient with a longstanding history of hypertension and end-stage renal disease on hemodialysis that presented to the emergency department on 09/22/17, at approximately 11:30 at night. The patient states that he has been having some chest discomfort diffuse across his chest since the day before. It had woken him up from sleep. Being that he has a history of some coronary artery disease and end- stage renal disease, he came to the emergency department to be evaluated. He was admitted for rule out ACS. The patient had some issues with hypotension during his stay while he was waiting to get his stress test and his echocardiogram of his heart. His blood pressure medications were stopped. He had some symptomatic hypotension with systolics in the 70s and 80s. This was managed conservatively with stopping his medications and monitoring his pressures very closely. The patient did have an echocardiogram of his heart on the . The transthoracic echo showed some changes from his previous, showed marked left ventricular hypertrophy and dynamic LVOT obstruction, which was similar except that the degree of LVOT obstruction and his mitral regurgitation had increased from his echo in 2013. He had a nuclear stress test on 09/25/17, which showed intermediate risk. Discussion was had between Dr. Tejas Lehman, his binding stitcher and Dr. Nilson Cerna, who performed the stress test. Given his extensive left ventricular hypertrophy and the LVOT obstruction, the patient was to be optimized with the beta-jan. He was placed on metoprolol XL 100 mg last night. He seemed to tolerate that well. He had no issues with hypotension overnight, blood pressures last night and also note he did have dialysis. Yesterday, blood pressure was 127/62, 119/56, and 124/60. Heart rate has been consistent between high 60s and 83. PHYSICAL EXAMINATION: On the day of discharge. Vital Signs: Temperature is 98.9, heart rate 65, blood pressure 124/60, respiratory rate 16, satting 100% on room air. HEENT: The patient is atraumatic, normocephalic. Eyes: PERRLA. Nonicteric sclerae. Neck: Supple, nontender. No JVD noted. No carotid bruit auscultated. No thyromegaly noted. Cardiovascular: S1, S2 present. He has a systolic murmur noted grade 2/6. Rate and rhythm are regular. Lungs: Clear bilaterally to auscultation with no wheezing, rhonchi, or rales. Abdomen : Soft, nontender, nondistended. Positive bowel sounds in all 4 quadrants. : Deferred. Musculoskeletal: There is no clubbing, no cyanosis, no edema. He has a steady gait. He has +2 distal pulses palpable. Gross motor and sensation are intact. Neurologic: Grossly intact with no focal deficits. Psychiatric: He is cooperative and appropriate. LABORATORY DATA: On 09/25/17, WBC 6.3, RBC 3.59, hemoglobin 12.1, hematocrit 35 , platelets 160. Sodium 135, potassium 4.6, chloride 91, CO2 of 25, BUN 86, creatinine 18.42, GFR 3.6. Also of note, the troponins were trended during his admission; troponin 1 was 0.15, 0.15, 0.16, and 0.14. Fasting lipid profile; triglycerides 167, cholesterol 170, LDL 100, HDL 37.1. DISCHARGE DIAGNOSES: 1. Chest pressure, rule out acute coronary syndrome. The patient has intermediate risk. At some point, he will likely need a cardiac catheterization. However, it has been determined that he should follow up with Dr. Cerna. He has been optimized with the beta-jan and will be following up with Cardiology. 2. End-stage renal disease, on hemodialysis. He follows with Dr. Tejas Lehman. 3. Symptomatic hypotension. His medications were changed again on just beta- jan only and his old medications were removed. 4. Hyperlipidemia. He should be optimized with statin given his other comorbidities. We will give him referral for a primary care physician. The patient wishes to follow up with regular PCP and have Dr. Lehman do his dialysis and then Dr. Cerna for his cardiac monitoring. Discharge Medications: 1. Vitamin E 800 units daily. 2. Sevelamer 2400 mg 3 times a day. 3. Carnitor 330 mg 3 times a day. 4. Calcitriol 0.5 mg daily. 5. Ferric citrate 210 mg 3 times a day. 6. Metoprolol succinate XL 100 mg p.o. q.h.s. The patient was discharged in stable condition. He verbalizes his understanding of his discharge medications, and follow-ups. JUAN RODRIGUEZ, JAYDEN [id number]/[facility] #: [id number] [place]
== END 2017-09-26 12:13 | disposition home or self-care (01) | DRG 313 ==
LOC: ED 00:25 → MEDTELE 05:07 → OBSVTOIN 09-25 12:00
PROVIDERS: ADMIT Hospitalist; ATTEND Internal Medicine
DX: R07.89 Other chest pain (principal); I24.9 Acute ischemic heart disease, unspecified; I95.89 Other hypotension; I13.11 Hypertensive heart and chronic kidney disease without heart failure, with stage 5 chronic kidney disease, or end stage renal disease; N18.6 End stage renal disease; Z99.2 Dependence on renal dialysis; E78.5 Hyperlipidemia, unspecified; Z79.899 Other long term (current) drug therapy; Z88.6 Allergy status to analgesic agent; Z88.0 Allergy status to penicillin; Z83.3 Family history of diabetes mellitus; Z82.49 Family history of ischemic heart disease and other diseases of the circulatory system; Z80.8 Family history of malignant neoplasm of other organs or systems; Z82.61 Family history of arthritis; Z87.891 Personal history of nicotine dependence; R01.1 Cardiac murmur, unspecified
CPT/HCPCS: 36415; 71045; 78452; 80053; 80061; 83036; 83605; 83735; 84484; 85025; 85027; 85610; 85730; 90935; 93005; 93017; 93306; 99285; A9270-GY; A9502; G0257; G0378; J1644; J2270; J2405; J2785

== ENCOUNTER 2017-12-07 06:12 | Day surgery (SDC) | payer MEDICARE, MEDICAID ==
--- NOTE | 2017-11-28 12:42 | HP ---
AMENDED REPORT NOW INCLUDES COSIGNER DESIGNATION - ESIGNED BEFORE ADJUSTMENT CC: Dr. Lehman * PREOPERATIVE HISTORY AND PHYSICAL: DATE OF ADMISSION/SURGERY: 12/07/17 This patient is scheduled for same-day surgery admission by Dr. Hernández, on , 12/07/17. DATE OF PREOPERATIVE HISTORY AND PHYSICAL EXAMINATION: 11/28/17. ATTENDING SURGEON: Dr. Mohan Hernández * (dictated by Darlene rBowne, JAYDEN). CHIEF COMPLAINT: Referral for peritoneal dialysis catheter. HISTORY OF PRESENT ILLNESS: The patient is a 47-year-old male referred to Dr. Hernández from Dr. Lehman with a chief complaint of renal failure in need of a peritoneal dialysis catheter. He is currently going to hemodialysis 3 times a week and has an AV fistula in the left upper extremity. He had a peritoneal dialysis catheter several years ago, but it was removed when his kidney function improved around 2014. Dr. Lehman would like him to have a peritoneal dialysis catheter so that he is able to do his dialysis at home again. He has had no other abdominal surgeries other than the previous peritoneal dialysis catheter. Dr. Hernández described the nature of surgical procedure, the relevant risks and benefits and today I reviewed the typical postoperative care and recovery and he will also receive education through the dialysis unit. The patient has had a chance to ask questions and stated that he understands the information and is satisfied with the answers given to his questions. He will sign surgical consent on the day of surgery. PAST MEDICAL HISTORY: Significant for hypertensive cardiomyopathy; end-stage renal disease, currently on hemodialysis Monday, Monday, Monday; hypertension. PAST SURGICAL HISTORY: Removal of peritoneal dialysis catheter by Dr. 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 CURRENT MEDICATIONS: 1. Lisinopril 2.5 mg p.o. daily. 2. Metoprolol ER 100 mg p.o. b.i.d. 3. Calcitriol 0.5 mcg p.o. daily. 4. Minoxidil 2.5 mg p.o. b.i.d. ALLERGIES: He is to avoid NSAIDs other than acetaminophen due to his renal failure; PENICILLIN has caused GI upset. FAMILY HISTORY: Mother has a history of hypertension and diabetes mellitus. Father with a history of T-cell lymphoma. SOCIAL HISTORY: He is a former smoker. He quit in 2011; he smokes marijuana daily; he lives with his girlfriend and is on disability; he denies the use of alcohol. REVIEW OF SYSTEMS: Constitutional: No fevers or chills. No recent infections. No excessive fatigue or weight loss. Endocrine: No diabetes or thyroid disease. Hematologic: No easy bruising or bleeding. He denies previous blood transfusions. Respiratory: No dyspnea on exertion. No chronic cough. Cardiovascular: He had consultation with Dr. Cerna on 11/22/17 for follow up after echocardiogram on 11/20/17, which revealed an ejection fraction greater than 65%; he has been cleared by Dr. Cerna to proceed with peritoneal dialysis catheter placement; he had an admission to [facility] in September 2017 with complaints of chest pain; his troponins were within normal limits on that visit and his EKG did not reveal any ischemic changes; his medications were adjusted and he has had no further episodes of chest pain. Gastrointestinal: No nausea, vomiting, diarrhea, GI bleeding, or constipation. Genitourinary: He still urinates, no dysuria. Musculoskeletal: Chronic joint and back pain. Neurologic: No headache or blurred vision. No areas of focal weakness or numbness. General: No previous anesthesia complications. No history of deep vein thrombosis or pulmonary embolism. PHYSICAL EXAMINATION GENERAL SURVEY: The patient is a 47-year-old obese male. VITAL SIGNS: Height 74 inches, weight 250 pounds, body mass index 32. Blood pressure 120/60, pulse 70 and regular, respiratory rate 16, temperature 97.3 tympanic. HEENT: Benign. The patient has a left glass eye. NECK: Supple. No cervical lymphadenopathy. No carotid bruits. LUNGS: Breath sounds bilaterally clear and equal. HEART: Regular rate and rhythm. No murmurs or rubs appreciated. ABDOMEN: Active bowel sounds. Obese, soft, nondistended, and nontender throughout. No obvious masses, organomegaly, or evidence of umbilical hernia. GENITALIA AND RECTAL EXAMS: Deferred. EXTREMITIES: Left upper extremity with AV fistula with palpable thrill. Lower extremities are without edema. No skin ulcerations. NEUROLOGIC: Alert and oriented x3. Steady gait. SKIN: Warm, dry, and intact. IMPRESSION: End-stage renal disease. PLAN: Same-day surgery admission to Dr. Hernández's service, on , 12/07/17 , for laparoscopic peritoneal dialysis catheter placement. TEODORA BROWNE, CLIENT TECHNOLOGIES SPECIALIST [id number]/[facility] #: [id number] GRUPO
[~2017-12-07 06:12] MED LIST: Buffered Lidocaine 0.9% SYRIN* 5 ML/SYR SYRINGE INTRADERM ONE; Famotidine TAB* 20 MG PO ONE; Metoclopramide TAB* 10 MG PO ONE
[2017-12-07] MEDS ORDERED: ceFAZolin 2 GM PREMIX (*) 2 GM/50 ML BAG IVPB ONE (06:52)
[2017-12-07] MEDS ORDERED: Famotidine TAB* 20 MG ONE (06:52)
[2017-12-07] MEDS ORDERED: Metoclopramide TAB* 10 MG ONE (06:52)
[2017-12-07] MEDS ORDERED: Bupivacaine 0.25% SDV* 30 ML ONE (07:12)
[2017-12-07] MEDS ORDERED: Heparin DIALYSIS ONLY(*) 1,000 UNITS/ML VIAL ONE (07:12)
[2017-12-07] MEDS ORDERED: Ondansetron INJ* 2 MG/ML VIAL ONE (07:16)
[2017-12-07] MEDS ORDERED: fentaNYL* 50 MCG/ML 2 ML VIAL (100 MCG VIAL) ONE ×2 (07:16→09:49)
[2017-12-07] MEDS ORDERED: Mivacurium Chloride* 20 MG/10 ML VIAL IV ONE (07:16)
[2017-12-07] MEDS ORDERED: Midazolam* 1 MG/ML 5 ML VIAL (5 MG) ONE (07:16)
[2017-12-07] MEDS ORDERED: Propofol* 10 MG/ML 20 ML BTL IV PUSH ONE (07:16)
[2017-12-07] MEDS ORDERED: Dexamethasone IV* 4 MG/ML 1 ML (4 MG) ONE (07:16)
[2017-12-07] MEDS ORDERED: Lidocaine 2% PF * 5 ML VIAL ONE (07:16)
[2017-12-07 07:21] LABS: EGFR Non-African American 3.1 (>60)
[2017-12-07] MEDS ORDERED: Naloxone* 0.4 MG/ML 1 ML VIAL IV PRN (08:22)
[2017-12-07] MEDS ORDERED: Ondansetron INJ* 2 MG/ML VIAL IV PRN (08:22)
[2017-12-07] MEDS ORDERED: Acetaminophen TAB* 325 MG PO PRN (08:38)
[2017-12-07] MEDS ORDERED: HYDROcodone/ACETAMIN 5-325 MG* 1 TAB PO PRN (08:38)
--- NOTE | 2017-12-07 08:38 | OP ---
Operative Report - Blank - Operative Report Date of Operation: 12/07/17 Note: Preop Dx: chronic kidney disease Postop Dx: same Procedure: laparoscopic placement of peritoneal dialysis catheter Anesthesia: Gen Surgeon: Edgar Asst:none Fluids: 700 ml 1/2NS EBL: none Drains: PD cath Specimen: none Findings: dictated
[2017-12-07] MEDS: fentaNYL* 50 MCG/ML 2 ML VIAL (100 MCG VIAL) IV PRN ×2 (09:50→10:14)
[2017-12-07] MEDS ORDERED: HYDROcodone/ACETAMIN 5-325 MG* 1 TAB ONE (10:16)
[2017-12-07 11:08] VITALS: BP 138/78
--- NOTE | 2017-12-07 12:56 | OP ---
CC: Dr. Mohan Hernández; Dr. Tejas Lehman* OPERATIVE REPORT: DATE OF OPERATION: 12/07/17 - [facility] DATE OF : 74 SURGEON: Mohan Hernández MD COLLEGE ADMISSIONS COUNSELOR: None. ANESTHESIOLOGIST: Ben Browning MD ANESTHESIA: General anesthetic, local infiltration. PRE-OP DIAGNOSIS: Renal failure. POST-OP DIAGNOSIS: Renal failure. OPERATIVE PROCEDURE: Laparoscopic placement of peritoneal dialysis catheter. DESCRIPTION OF PROCEDURE: The patient was supine on the operative table. After adequate general anesthetic, compression stockings, Daja Hugger warmer, and intravenous antibiotics, the abdomen was prepped with antiseptic and draped in a sterile fashion. Left upper quadrant 5-mm Visiport was placed under direct vision. The abdomen was insufflated with carbon dioxide. Additional cannula, 12 mm subxiphoid, was placed under direct vision as well. Under direct vision, a cannula was placed to the right of the umbilicus and tunneled down along the rectus sheath and then out into the peritoneal cavity in the lower abdomen. A 62-cm Curl Cath was placed into the abdominal cavity via the epigastric port and then the catheter was withdrawn and brought out through the right rectus site. One cuff was left in the rectus sheath, the other cuff exited through the skin site. The tunneling trocar was then used to pass the catheter through the subcutaneum and out through the skin in a curved track. The catheter was then hooked to the dialysate and this infused in and out easily. The epigastric site was closed with 0 Vicryl using Endo Close device and the skin incisions were closed with 5-0 Vicryl followed by Steri- Strips. He tolerated the procedure well, was awakened and brought to Recovery in good condition. There were no complications. Drain was peritoneal dialysis catheter. Sponge and instrument counts were correct. Estimated blood loss was 10 mL. [id number]/[facility] #: [id number] MTDD
== END 2017-12-07 11:10 | disposition home or self-care (01) ==
LOC: OR 06:12
PROVIDERS: ATTEND Surgery
DX: N18.6 End stage renal disease (principal); I11.9 Hypertensive heart disease without heart failure; Z87.891 Personal history of nicotine dependence; Z99.2 Dependence on renal dialysis; D64.9 Anemia, unspecified
CPT/HCPCS: 36415; 80048; A9270-GY; J0690; J1100; J1644; J2250; J2405; J2704; J3010

== ENCOUNTER → 2018-03-22 08:59 | Day surgery (SDC) | payer MEDICARE, MEDICAID ==
--- NOTE | 2018-03-21 11:05 | HP ---
CC: Dr. Mohan Hernández* HISTORY AND PHYSICAL: DATE OF ADMISSION: 03/22/2018. HISTORY OF PRESENT ILLNESS: Mr. Dodson is a 48-year-old gentleman with a history of end-stage renal disease secondary to hypertension. He has been getting ready to transfer from hemodialysis to peritoneal dialysis. We tried to flush his catheter recently and while fluid went in well, it did not return. He had a peritoneogram performed, which revealed no significant problems. There were 2 attempts to lyse clots with his catheter, neither of these was successful. As a result, he is being admitted at the present time to revise and perhaps replace his peritoneal dialysis catheter. PAST MEDICAL HISTORY: Significant for hypertension. He has been maintained on hemodialysis. He has had fistula in left arm. He has a history of traumatic loss of his left eye. MEDICATIONS: Include: 1. Calcitriol 0.25 mcg daily. 2. Dialyvite 800 one daily. 3. Foznol 1000 mg t.i.d. with meals. 4. Labetalol 300 mg b.i.d. 5. Lasix 40 mg daily. 6. Minoxidil 10 mg 1-1/2 tablets 3 times per day. 7. Lisinopril 10 mg daily. ALLERGIES: He has no real medical allergies, but he avoids nonsteroid inflammatory drugs and penicillin produces gastrointestinal upset. FAMILY HISTORY: Significant for his mother has hypertension and diabetes. SOCIAL HISTORY: He is a former smoker. He presently is disabled. REVIEW OF SYSTEMS: No heat or cold intolerance. No fever, no chills. No chest pain, no shortness of breath. No arthropathies. No nausea or vomiting. He has had history of depression in the past. PHYSICAL EXAMINATION GENERAL: He is a well-developed, -Italian gentleman, in no distress. VITAL SIGNS: Blood pressure of 150/72. HEENT: He has a glass eye on the left. His right eye is reactive. NECK: There is no jugular venous distension. CHEST: Clear. HEART: Revealed regular rhythm without murmurs. ABDOMEN: He has a non-functional dialysis catheter in his abdomen. EXTREMITIES: There is no edema. IMPRESSION: 1. End-stage renal disease. 2. Nonfunctional peritoneal dialysis catheter. 3. Hypertension. PLAN: He is being admitted to revise his peritoneal dialysis catheter by Dr. Hernández. [id number]/[facility] #: [id number] [place]
[~2018-03-22 08:59] MED LIST changes: +Famotidine IV* 10 MG/ML 2 ML (20 mg) IV ONE; +Famotidine IV* 10 MG/ML 2 ML (20 mg) ONE; -Famotidine TAB* 20 MG PO ONE; -Metoclopramide TAB* 10 MG PO ONE; +NS 0.45% 1000 ML BAG* 1,000 ML IV SCH; +ceFAZolin 2 GM PREMIX (*) 2 GM/50 ML BAG IVPB ONE
[2018-03-22 11:55] VITALS: BP 178/85
== END | disposition home or self-care (01) ==
LOC: OR 08:59 → SP 08:59
PROVIDERS: ATTEND Surgery
DX: I12.0 Hypertensive chronic kidney disease with stage 5 chronic kidney disease or end stage renal disease (principal); N18.6 End stage renal disease; E78.5 Hyperlipidemia, unspecified; Z53.9 Procedure and treatment not carried out, unspecified reason
CPT/HCPCS: J0690

== ENCOUNTER 2018-03-29 09:56 | Day surgery (SDC) | payer MEDICARE, MEDICAID ==
[~2018-03-29 09:56] MED LIST changes: +Dexamethasone TAB* 4 MG PO ONE; +DiMENhydriNATE IV* 50 MG/ML VIAL IV PUSH PRN; -Famotidine IV* 10 MG/ML 2 ML (20 mg) ONE; +Morphine INJ* 2 MG/ML 1 ML SYRINGE (TWO MG - NEW SYRINGE VERSION) IV PRN; +Naloxone* 0.4 MG/ML 1 ML VIAL IV PRN; +Ondansetron TAB* 4 MG PO ONE; +PROCHLORPERAZINE INJ 5 MG/ML 2 ML VIAL IV PRN; -ceFAZolin 2 GM PREMIX (*) 2 GM/50 ML BAG IVPB ONE; +fentaNYL* 50 MCG/ML 2 ML VIAL (100 MCG VIAL) IV PRN; +oxyCODONE/Acetamin 5/325 MG* TAB PO PRN
[2018-03-29] MEDS ORDERED: Famotidine IV* 10 MG/ML 2 ML (20 mg) ONE (10:32)
[2018-03-29] MEDS ORDERED: Ondansetron ODT TAB* 4 MG ONE (10:32)
[2018-03-29] MEDS ORDERED: ceFAZolin 2 GM PREMIX (*) 2 GM/50 ML BAG IVPB ONE (10:33)
[2018-03-29] MEDS ORDERED: Dexamethasone TAB* 4 MG ONE (10:33)
[2018-03-29 11:49] LABS: EGFR Non-African American 4.7 (>60)
[2018-03-29] MEDS ORDERED: fentaNYL* 50 MCG/ML 2 ML VIAL (100 MCG VIAL) ONE (13:59)
[2018-03-29] MEDS ORDERED: KETAMINE HCL* 50 MG/ML 10 ML VIAL ONE (13:59)
[2018-03-29] MEDS ORDERED: Midazolam* 1 MG/ML 5 ML VIAL (5 MG) ONE (13:59)
[2018-03-29] MEDS ORDERED: Flumazenil* 0.1 MG/ML 5 ML MDV ONE (14:20)
[2018-03-29] MEDS ORDERED: Heparin VIAL(*) 5000 UNITS/ML VIAL (FIVE THOUSAND) ONE (14:22)
[2018-03-29] MEDS ORDERED: ROPIVACAINE 5 MG/ML 30 ML BTL (0.5%) ONE (14:23)
[2018-03-29] MEDS ORDERED: Heparin DIALYSIS ONLY(*) 1,000 UNITS/ML VIAL ONE ×3 (14:25→17:36)
[2018-03-29] MEDS ORDERED: Glycopyrrolate IV* 0.2 MG/ML 1 ML VIAL ONE (14:42)
[2018-03-29] MEDS ORDERED: Neostigmine Methylsulfate* 1 MG/ML 10 ML VIAL (1 mg/ml) ONE (14:43)
[2018-03-29] MEDS ORDERED: Propofol* 10 MG/ML 20 ML BTL IV PUSH ONE (15:41)
[2018-03-29] MEDS ORDERED: Lidocaine 2% PF * 5 ML VIAL ONE (15:41)
[2018-03-29] MEDS ORDERED: Labetalol IV* 5 MG/ML 20 ML VIAL ONE (16:12)
[2018-03-29] MEDS ORDERED: hydrALAZINE IV* 20 MG/ML VIAL ONE (16:20)
[2018-03-29] MEDS ORDERED: oxyCODONE/Acetamin 5/325 MG* TAB ONE (16:59)
[2018-03-29 18:37] VITALS: BP 145/93
--- NOTE | 2018-03-30 07:56 | OP ---
CC: Dr. Mohan Hernández; Dr. Tejas Lehman* OPERATIVE REPORT: DATE OF OPERATION: 03/29/18 - [facility] DATE OF : 74 SURGEON: Mohan Hernández MD ACCOUNTS RECEIVABLE COLLECTOR: Darlene Thorpe NP ANESTHESIOLOGIST: Mohan Llamas MD ANESTHESIA: General anesthetic, local infiltration. PRE-OP DIAGNOSIS: Renal failure with dysfunction of peritoneal catheter. POST-OP DIAGNOSIS: Renal failure with dysfunction of peritoneal catheter. OPERATIVE PROCEDURE: Laparoscopic revision of peritoneal catheter with lysis of adhesions. DESCRIPTION OF PROCEDURE: The patient was supine on the operating room table. After adequate general anesthetic, compression stockings, Daja Hugger warmer, and intravenous antibiotics, the abdomen was prepped with antiseptic and draped in a sterile fashion. Left upper quadrant 5-mm Visiport cannula was placed and abdomen was insufflated. There was no evidence of injury in that region and then under direct vision, an 8-mm subxiphoid cannula and subsequently a 5-mm left mid abdominal cannula were placed under direct vision. The peritoneal dialysis catheter was caught up in adhesions down in the pelvis. This was pulled out from the adhesions and then adhesions were taken down to free up the small bowel in the pelvis. The omentum was adherent along the left gutter and was not down into the pelvis. After lysing the adhesions, the catheter was flushed and there appeared to be some fibrinous debris clogging up the distal 8 cm of the catheter and flushing it did not extrude this, so a urologic guidewire was passed down the tube and this was able to extrude the fibrinous debris, which was retrieved and removed. The catheter was then flushing beautifully and the pneumoperitoneum was allowed to escape. The cannulae removed. The skin incisions closed with 5-0 Vicryl followed by Steri-Strips. A dressing was placed over the catheter site and he was brought to Recovery in awake and in good condition. There were no complications. No new drains, just the peritoneal catheter. Sponge and instrument counts correct. Estimated blood loss 30 mL. [id number]/[facility] #: [id number] MTDD
== END 2018-03-29 18:50 | disposition home or self-care (01) ==
LOC: OR 09:56
PROVIDERS: ATTEND Surgery
DX: T85.828A Fibrosis due to other internal prosthetic devices, implants and grafts, initial encounter (principal); N18.6 End stage renal disease; Z99.2 Dependence on renal dialysis; I12.9 Hypertensive chronic kidney disease with stage 1 through stage 4 chronic kidney disease, or unspecified chronic kidney disease; Z87.891 Personal history of nicotine dependence
CPT/HCPCS: 36415; 80048; A9270-GY; J0360; J0690; J1644; J2250; J2704; J2710; J2795; J3010; J8540

== ENCOUNTER → 2018-04-05 13:01 | Day surgery (SDC) | payer MEDICARE, MEDICAID ==
[~2018-04-05 13:01] MED LIST changes: +Atracurium* 10 MG/ML 10 ML VIAL ONE; +Bupivacaine 0.25% W/EPI* 10 ML SDV ONE; -Dexamethasone TAB* 4 MG PO ONE; +DiMENhydriNATE IV* 50 MG/ML VIAL IV PUSH ONE; +Famotidine IV* 10 MG/ML 2 ML (20 mg) ONE; +Glycopyrrolate IV* 0.2 MG/ML 1 ML VIAL ONE; +HYDROcodone/ACETAMIN 5-325 MG* 1 TAB ONE; +HYDROcodone/ACETAMIN 5-325 MG* 1 TAB PO ONE; +Heparin DIALYSIS ONLY(*) 1,000 UNITS/ML VIAL ONE; +Heparin VIAL(*) 5000 UNITS/ML VIAL (FIVE THOUSAND) ONE; +KETAMINE HCL* 50 MG/ML 10 ML VIAL ONE; +Lidocaine 2% PF * 5 ML VIAL ONE; +Midazolam* 1 MG/ML 5 ML VIAL (5 MG) ONE; +Neostigmine Methylsulfate* 1 MG/ML 10 ML VIAL (1 mg/ml) ONE; +Ondansetron ODT TAB* 4 MG ONE; +Propofol* 10 MG/ML 20 ML BTL IV PUSH ONE; +ceFAZolin 2 GM PREMIX (*) 2 GM/50 ML BAG IVPB ONE; +fentaNYL* 50 MCG/ML 2 ML VIAL (100 MCG VIAL) ONE; +hydrALAZINE IV* 20 MG/ML VIAL ONE; -oxyCODONE/Acetamin 5/325 MG* TAB PO PRN
[2018-04-05 19:18] VITALS: BP 146/78
--- NOTE | 2018-04-06 04:22 | OP ---
CC: Dr. Tejas Lehman * DATE OF OPERATION: 04/05/18 - [facility] DATE OF : 74 SURGEON: Mohan Hernández MD CARETAKER RESORT: None. ANESTHESIOLOGIST: Dr. Llamas. ANESTHESIA: General anesthetic, local infiltration. PRE-OP DIAGNOSIS: Dysfunction of peritoneal dialysis catheter. POST-OP DIAGNOSIS: Dysfunction of peritoneal dialysis catheter. OPERATIVE PROCEDURE: Laparoscopic revision of peritoneal dialysis catheter. DESCRIPTION OF PROCEDURE: The patient was supine on the operative table. After adequate general anesthetic, compression stockings, Daja Hugger warmer, and intravenous antibiotics, the abdomen was prepped with antiseptic and draped in a sterile fashion. The peritoneal dialysis catheter had the hardware removed and was also prepped onto the field sterilely. Left upper quadrant Visiport 5-mm cannula was placed under direct vision. Insufflation was carried out with carbon dioxide. Additional cannula, 5-mm subxiphoid was placed through small stab wounds under direct vision. The peritoneal dialysis catheter was noted to be wedged down between two loops of bowel that were adherent together. It was just going through a small hole and disappearing underneath. I pulled the catheter out of this hole and decided not to lysis the adhesions for fear that they would just stick back together and cause the bowel to get trap there. So, at this point, the catheter was placed into some loops of bowel above this area. The catheter was inspected. There was no clot or debris in the catheter and it was flushed easily. Dialysate was infused and it was returning nicely. So, the cannulae were removed. A 5-0 Vicryl was closed the skin followed by Steri-Strips. He was returned to Recovery in good condition. No complications. No drains other than the peritoneal dialysis catheter. Sponge and instrument counts correct. Estimated blood loss 10 mL. [id number]/[facility] #: [id number] [facility]
== END | disposition home or self-care (01) ==
LOC: OR 13:01
PROVIDERS: ATTEND Surgery
DX: T85.621A Displacement of intraperitoneal dialysis catheter, initial encounter (principal); N18.6 End stage renal disease; I12.9 Hypertensive chronic kidney disease with stage 1 through stage 4 chronic kidney disease, or unspecified chronic kidney disease; Z99.2 Dependence on renal dialysis
CPT/HCPCS: A9270-GY; J0360; J0690; J1644; J2250; J2704; J2710; J3010

== ENCOUNTER → 2019-05-01 10:11 | Day surgery (SDC) | payer MEDICARE, MEDICAID ==
[~2019-05-01 10:11] MED LIST changes: -Atracurium* 10 MG/ML 10 ML VIAL ONE; +Bacitracin OINTMENT* 0.5% 0.5 oz TUBE ONE; -Buffered Lidocaine 0.9% SYRIN* 5 ML/SYR SYRINGE INTRADERM ONE; +Buffered Lidocaine 1% SYRIN* 1 ML/SYRINGE INTRADERM ONE; +Bupivacaine 0.25% EPI 200,000* 30 ML SDV ONE; -Bupivacaine 0.25% W/EPI* 10 ML SDV ONE; +Dexamethasone IV* 4 MG/ML 1 ML (4 MG) IV SLOW PU ONE; +Dexamethasone IV* 4 MG/ML 1 ML (4 MG) ONE; -DiMENhydriNATE IV* 50 MG/ML VIAL IV PUSH ONE; -DiMENhydriNATE IV* 50 MG/ML VIAL IV PUSH PRN; -Glycopyrrolate IV* 0.2 MG/ML 1 ML VIAL ONE; -HYDROcodone/ACETAMIN 5-325 MG* 1 TAB ONE; -HYDROcodone/ACETAMIN 5-325 MG* 1 TAB PO ONE; -Heparin DIALYSIS ONLY(*) 1,000 UNITS/ML VIAL ONE; -Heparin VIAL(*) 5000 UNITS/ML VIAL (FIVE THOUSAND) ONE; -KETAMINE HCL* 50 MG/ML 10 ML VIAL ONE; +Lactated Ringers 1000 ML Bag* 1,000 ML IV SCH; -Lidocaine 2% PF * 5 ML VIAL ONE; -Morphine INJ* 2 MG/ML 1 ML SYRINGE (TWO MG - NEW SYRINGE VERSION) IV PRN; -Neostigmine Methylsulfate* 1 MG/ML 10 ML VIAL (1 mg/ml) ONE; +Ondansetron INJ* 2 MG/ML VIAL ONE; -Ondansetron ODT TAB* 4 MG ONE; -Ondansetron TAB* 4 MG PO ONE; -PROCHLORPERAZINE INJ 5 MG/ML 2 ML VIAL IV PRN; -Propofol* 10 MG/ML 20 ML BTL IV PUSH ONE; +Propofol* 10 MG/ML 20 ML BTL ONE; -ceFAZolin 2 GM PREMIX (*) 2 GM/50 ML BAG IVPB ONE; -fentaNYL* 50 MCG/ML 2 ML VIAL (100 MCG VIAL) IV PRN; -hydrALAZINE IV* 20 MG/ML VIAL ONE
[2019-05-01 15:59] VITALS: BP 126/76
--- NOTE | 2019-05-02 17:02 | OP ---
CC: Dr. Tejas Lehman; [facility] * DATE OF OPERATION: 05/01/19 - [facility] DATE OF : 74 SURGEON: Reagan Webber MD CASHIER PAYMENTS RECEIVED: None. ANESTHESIOLOGIST: Dr. Pearson. ANESTHESIA: Local MAC. PRE-OP DIAGNOSIS: End-stage renal disease, on hemodialysis, with no longer need for peritoneal dialysis. POST-OP DIAGNOSIS: End-stage renal disease, on hemodialysis, with no longer need for peritoneal dialysis. OPERATIVE PROCEDURE: Removal of peritoneal dialysis catheter. ESTIMATED BLOOD LOSS: Minimal. IV FLUIDS: Crystalloid fluids given. SPECIMEN: None. DESCRIPTION OF PROCEDURE: The patient was identified in the preoperative area, he was marked, brought to the operating room, and placed on the operating table in a supine position. General sedation was given. No antibiotics were given. The patient's abdomen was clipped of hair and prepped and draped in a standard surgical fashion, and a time-out was performed. An incision overlying the right rectus muscle was carried out. This was deepened down to the tubing which was isolated. The cuff in the subcutaneous fat was removed and then we cut the tubing and allowed it to fall out of the exit site on the lateral aspect of the right abdomen. Next with traction on the tubing as it headed towards the abdomen, we dissected down onto the the rectus, this was incised and the cuff removed from the underlying muscle. The tubing was removed in its entirety and passed off and then we gained hemostasis and reapproximated the muscular fascia with 0 Vicryl suture. The wound was irrigated then skin reapproximated with skin carine followed by sterile dressing. Antibiotics ointment was placed at the exit site. Dressing was applied. Review of the peritoneal dialysis catheter showed that tissue within the tubing itself, this was flushed out. Some of the holes were still operational, but the distal portions were not due to his overgrowth tissue within it. [id number]/[facility] #: [id number] [facility]PITALStacy
== END | disposition home or self-care (01) ==
LOC: OR 10:11
PROVIDERS: ATTEND Surgery
DX: N18.6 End stage renal disease (principal); Z99.2 Dependence on renal dialysis; I12.9 Hypertensive chronic kidney disease with stage 1 through stage 4 chronic kidney disease, or unspecified chronic kidney disease; I11.9 Hypertensive heart disease without heart failure; I43 Cardiomyopathy in diseases classified elsewhere; Z87.891 Personal history of nicotine dependence
CPT/HCPCS: A9270-GY; J1100; J2250; J2405; J2704; J3010

== ENCOUNTER → 2019-10-22 10:09 | Day surgery (SDC) | payer OTHER ==
[~2019-10-22 10:09] MED LIST changes: -Bacitracin OINTMENT* 0.5% 0.5 oz TUBE ONE; -Buffered Lidocaine 1% SYRIN* 1 ML/SYRINGE INTRADERM ONE; -Bupivacaine 0.25% EPI 200,000* 30 ML SDV ONE; +Clindamycin 600 MG/D5W BAG(*) 600 MG/50 ML BAG IV ONE; -Dexamethasone IV* 4 MG/ML 1 ML (4 MG) IV SLOW PU ONE; -Dexamethasone IV* 4 MG/ML 1 ML (4 MG) ONE; -Famotidine IV* 10 MG/ML 2 ML (20 mg) IV ONE; -Famotidine IV* 10 MG/ML 2 ML (20 mg) ONE; +Flumazenil* 0.1 MG/ML 5 ML MDV ONE; +Heparin 2 UNITS/ML IVPREMIX* 1,000 ML IV ONE; +Heparin(*) 1000 UNIT/ML 10 ML VIAL CATH LAB IV ONE; +Iodixanol 320 (CONTRAST) 100 ML SDV ONE; -Lactated Ringers 1000 ML Bag* 1,000 ML IV SCH; +Lidocaine 1% INJ* 10 MG/ML 30 ML SDV ONE; -NS 0.45% 1000 ML BAG* 1,000 ML IV SCH; -Naloxone* 0.4 MG/ML 1 ML VIAL IV PRN; +Naloxone* 0.4 MG/ML 1 ML VIAL ONE; -Ondansetron INJ* 2 MG/ML VIAL ONE; -Propofol* 10 MG/ML 20 ML BTL ONE
[2019-10-22 11:19] LABS: Activated Partial Thrombo Time 35.4 seconds (26.0-38.0); INR 0.98 (0.82-1.09)
[2019-10-22 14:04] VITALS: BP 118/69
--- NOTE | 2019-10-22 16:16 | OP ---
Operative Report - Blank - Operative Report Date of Operation: 10/22/19 Note: Right AVF Angiogram Procedure Note: Performed by: Dr. Young Manley, [facility] Nephrology Procedure date: 10/22/2019 Percutaneous u/s guided access of AVF with Fistulogram and radiology supervision & interpretation Percutaneous balloon angioplasty of AVF stenosis with radiology supervision and interpretation by me Direct Arteriogram of radial artery Conscious sedation Procedure Note: Consent was obtained, in chart. Patient understands risks, benefits, alternatives and wants to proceed. Following strict hand hygiene and standard sterile precautions, a full sterile attire for myself and all personnel involved in the procedure, including a gown , cap, face mask with an eye shield, and double sterile gloves. The procedure started with 2 ID time out after marking the AVF. Patient was put in supine position. Left UE and Chest were prepped with 2% Chlorhexidine, and the surgical field was surrounded by sterile surgical towels. A sterile full body drape was placed to cover the patient from head to toe. Vascular US was used to cannulate the access. Left Forearm AVF was accessed by a 21-G micro puncture needle, then a 0.018 micro wire was threaded through the 21-G needle towards the inflow, and the 21- G needle was pulled out, leaving the micro wire in, then a 4-Fr sheath and inner stylet were passed over the micro wire into the vein. Both, the micro wire and the inner stylet were removed and the 4-Fr sheath was kept in place. Confirmed using Fluoro. Then, a 0.035 inch floppy tip Hydrophilic wire, was passed through the 4-Fr sheath into the AV anastomosis, confirmed by Fluoro. The 4-Fr sheath was exchanged for 6-Fr sheath and dilator, and the dilator was removed. Kumpe catheter was used to cross the AV anastomosis and obtain contrast based images in different projections. Direct Arteriogram of the Radial Artery: The Kumpe Diagnostic Catheter was used to obtain a Direct Arteriogram AV Anastomosis was Ok, no stenosis. Severe Juxta anastomosis stenosis, treated with 6 mm x 4 cm then 7 mm x 4 cm balloon inflated to 14-16 ATMs with excellent results. No AV anastomosis stenosis. The lumen of body of the AVF was smooth with 1 small aneurysms but no stenosis or defects. Cannulation site was repaired using 3-0 Proline in a Z-stitch fashion and the 6-Fr sheath was removed and the stitch tightened. Procedure was considered Complete. Complications: None Estimated Bleeding: < 5cc *ABx: Clindamycin 600 IVPB pre Op. *Medications: 1)IV Contrast: 30 cc Vesipaue 2)Fentanyl: 75 Mcg 3)Versed: 0.75 mg
--- NOTE | 2019-10-22 18:42 | OP ---
Operative Report - Blank - Operative Report Date of Operation: 10/22/19 Note: Right AVF Angiogram Procedure Note: Performed by: Dr. Young Manley, [facility] Nephrology Procedure date: 10/22/2019 Percutaneous u/s guided access of AVF with Fistulogram and radiology supervision & interpretation Percutaneous Endovascular Thrombectomy of clotted AVF, using Balloon maceration and Kwan balloon. Percutaneous balloon angioplasty of AVF stenosis with radiology supervision and interpretation by me No Conscious sedation as patient just ate, and this was done emergently. Procedure Note: Consent was obtained, in chart. Patient understands risks, benefits, alternatives and wants to proceed. 30 minutes after the patient left the IR suite, he felt no thrill in his AVF, I confirmed upon examination, and his access clotted so he was brought back in after 2 Hrs for emergency declotting of AVF. Following strict hand hygiene and standard sterile precautions, a full sterile attire for myself and all personnel involved in the procedure, including a gown , cap, face mask with an eye shield, and double sterile gloves. The procedure started with 2 ID time out after marking the AVF. Patient was put in supine position. Left UE and Chest were prepped with 2% Chlorhexidine, and the surgical field was surrounded by sterile surgical towels. A sterile full body drape was placed to cover the patient from head to toe. Vascular US was used to cannulate the access. Left UE AVF was accessed by a 21-G micro puncture needle, then a 0.018 micro wire was threaded through the 21-G needle towards the inflow and the 21-G needle was pulled out, leaving the micro wire in, then a 4-Fr sheath and inner stylet were passed over the micro wire into the vein. Both, the micro wire and the inner stylet were removed and the 4-Fr sheath was kept in place. Confirmed using Fluoro. Then, a 0.035 inch floppy tip Hydrophilic wire, was passed through the 4-Fr sheath. The 4-Fr sheath was exchanged for 6-Fr sheath and dilator, and the dilator was removed. The 0.035 wire was passed into the distal radial artery across the AV anastomosis, using Kump catheter confirmed by Fluoro. Pull back Angiogram was done confirmed a clotted AVF. Balloon Maceration of the clots was performed, using 6 mm x 8 cm, then 7 mm x 8 cm, then 8 mm x 8 cm Conquest balloons (BD) throughout the AVF, multiple times , inflated up to 12-14 ATMs, until flow was regained, although feeble. Then immediately a 5.5-Fr Wkan Balloon was used over the 0.035 wire, and across the AV Anastomosis, multiple times, to pull the fibrin plug, until excellent flow was achieved. There was a culprit lesion at the Juxta-anastomotic segment, that was treated with 7 mm x 4 cm balloon in an initial angioplasty today, but it kept showing resistance to angioplasty with persistent waist, so I used a 7 mm x 2 cm balloon inflated to 32 ATMs with excellent results and resolution of the waist. AVF regained full flow. AVF Angiogram showed a Left UE AVF Radio-Cephalic AVF: Outflow through Lt Cephalic V. Body of the AVF: Excellent flow, no more clots seen under fluoro. Central circulation: No stenosis Direct Arteriogram of the Radial Artery using the 5-Fr Kumpe Diagnostic Catheter showed healthy Radial artery, no clots, and healthy AV Anastomosis with no stenosis. Cannulation site was repaired using 2-0 Proline in a Z-stitch fashion and the 6-Fr sheath was removed and the stitch tightened. Procedure was considered Complete. Complications: None Estimated Bleeding: < 5cc *Radiation safety: 1)Fluoro Time: 18.9 Minutes 2)Radiation Exposure: 141 mGy *Medications: 1)IV Contrast: 70 cc Vesipaue 2)Fentanyl: None as he ate 3)Versed: None. Full Stomach 4)Heparin: 5,000
== END | disposition home or self-care (01) ==
LOC: CHICATH 10:09
PROVIDERS: ATTEND Internal Medicine Nephrology
DX: N18.6 End stage renal disease (principal); I12.0 Hypertensive chronic kidney disease with stage 5 chronic kidney disease or end stage renal disease; R53.83 Other fatigue; R60.9 Edema, unspecified
CPT/HCPCS: 36415; 36861; 36901; 36902; 76937; 85610; 85730; 99156; 99157; C1725; C1887; C1894; J1644; J2250; J2310; J3010